=== PATIENT | male | born 1990 ===

== ENCOUNTER 2016-12-20 14:21 | Emergency (ER) | payer OTHER ==
[2016-12-20 14:40] VITALS: RESP 18; O2SAT 99
[2016-12-20 16:05] LABS: SQUAMOUS EPITHIAL < 1 /hpf (0-5); URINE BILIRUBIN NEGATIVE (NEGATIVE); URINE BLOOD NEGATIVE (NEGATIVE); URINE CLARITY Clear (Clear); URINE COLOR Straw (YELLOW); URINE GLUCOSE (UA) NORMAL (Normal); URINE LEUKOCYTE ESTERASE NEG Leu/uL (Negative); URINE NITRATE NEGATIVE (NEGATIVE); URINE PROTEIN NEGATIVE (NEGATIVE); URINE UROBILINOGEN NORMAL mg/dL (0.2-1.0)
--- NOTE | 2016-12-20 16:20 | RAD ---
HISTORY: SOB, Fevers COMPARISON: No prior. TECHNIQUE: Chest PA and lateral FINDINGS: LUNGS: The lungs are well inflated and clear. PLEURA: No significant pleural effusion identified. No pneumothorax apparent. CARDIOVASCULAR: Normal. OSSEOUS STRUCTURES: No significant abnormalities. VISUALIZED UPPER ABDOMEN: Normal. OTHER FINDINGS: None. IMPRESSION: No active pulmonary disease.
--- NOTE | 2016-12-20 17:12 | C.PDOC ---
Time Seen by Provider: 12/20/16 15:37 Chief Complaint (Nursing): Fever History Per: Patient Onset/Duration Of Symptoms: Days (months), Intermittent Episodes Current Symptoms Are (Timing): Still Present Associated Symptoms: Fever, Sore Throat (?), Other (SOB?) Severity: Moderate Additional History Per: Prior Records Past Medical History Reviewed: Historical Data, Nursing Documentation, Vital Signs Vital Signs: Last Vital Signs Temp 97.9 F 12/20/16 14:37 Pulse 75 12/20/16 14:37 Resp 18 12/20/16 14:37 BP 134/72 12/20/16 14:37 Pulse Ox 99 12/20/16 14:37 - Medical History PMH: No Chronic Diseases Surgical History: No Surg Hx Family History: States: Unknown Family Hx - Social History Hx Alcohol Use: Yes Hx Substance Use: No - Immunization History Hx Tetanus Toxoid Vaccination: No Hx Influenza Vaccination: No Hx Pneumococcal Vaccination: No Review Of Systems Except As Marked, All Systems Reviewed And Found Negative. Constitutional: Positive for: Fever. Negative for: Weakness ENT: Positive for: Throat Pain (?). Negative for: Ear Pain, Nose Congestion Cardiovascular: Negative for: Chest Pain Respiratory: Positive for: Shortness of Breath (?). Negative for: Cough Gastrointestinal: Negative for: Vomiting, Abdominal Pain, Diarrhea Genitourinary: Positive for: Frequency. Negative for: Dysuria Musculoskeletal: Negative for: Neck Pain, Back Pain Skin: Negative for: Rash Neurological: Negative for: Weakness, Numbness, Seizures, Altered Mental Status , Headache Physical Exam - Physical Exam Appears: Non-toxic, No Acute Distress Skin: Normal Color, Warm, Dry, No Rash Head: Atraumatic, Normacephalic Eye(s): bilateral: Normal Inspection, PERRL, EOMI Oral Mucosa: Moist, No Drooling, No Trismus Throat: Normal Neck: Normal ROM, Supple Lymphatic: No Adenopathy Cardiovascular: Rhythm Regular Respiratory: Normal Breath Sounds, No Accessory Muscle Use Gastrointestinal/Abdominal: Soft, No Tenderness Back: No CVA Tenderness Extremity: Normal ROM, No Pedal Edema, No Calf Tenderness Neurological/Psych: Oriented x3, Normal Speech, Normal Cognition, Normal Motor, Normal Sensation ED Course And Treatment O2 Sat by Pulse Oximetry: 99 Pulse Ox Interpretation: Normal - Radiology CXR: Viewed By Me, Read By Radiologist CXR Interpretation: Yes: No Acute Disease Disposition Counseled Patient/Family Regarding: Studies Performed, Diagnosis, Need For Followup - Disposition Referrals: Dalton Vizcarra MD [Staff Provider] - [facility] [Outside] Disposition: HOME/ ROUTINE Disposition Time: 17:13 Condition: STABLE Additional Instructions: Follow up with an Infectious Disease specialist for further evaluation and treatment. Return to the ER if you develop worsening of symptoms or if you have any other concerns. Forms: [facility] ([place]), General Discharge Instructions - Clinical Impression Clinical Impression: History of fever
[2016-12-20 17:21] VITALS: BP 120/71; PULSE 72; TEMP 97.5
== END 2016-12-20 17:20 | disposition home or self-care (01) ==
LOC: C.ER 14:21
DX: R50.9 Fever, unspecified (principal)